=== PATIENT | male | born 1985 | race Caucasian/White ===

== ENCOUNTER 2018-06-04 17:42 | Emergency (ER) | payer OTHER ==
[~2018-06-04] VITALS: Ht 180.3 cm; Wt 72.6 kg
[~2018-06-04 17:42] MED LIST: ALBU4 PO; Naprosyn500 MG PO; PRED20 PO; Vibramycin100 MG PO; Zofran Odt4 MG SL
[2018-06-04] MEDS ORDERED: ACET500 (18:34)
[2018-06-04] MEDS ORDERED: CYCL10 PO (18:34)
[2018-06-04] MEDS ORDERED: Xanax0.5 MG PO (20:06)
[2018-06-04] MEDS ORDERED: Ultram50 MG PO (20:06)
== END 2018-06-04 20:14 | disposition home or self-care (01) ==
LOC: ER 17:42
DX: F41.0 Panic disorder [episodic paroxysmal anxiety] (principal); K40.90 Unilateral inguinal hernia, without obstruction or gangrene, not specified as recurrent; J45.909 Unspecified asthma, uncomplicated; F17.210 Nicotine dependence, cigarettes, uncomplicated; Z91.018 Allergy to other foods; Z79.899 Other long term (current) drug therapy; W01.0XXA Fall on same level from slipping, tripping and stumbling without subsequent striking against object, initial encounter
CPT/HCPCS: 99283

== ENCOUNTER 2018-07-25 12:06 | Emergency (ER) | payer OTHER ==
[~2018-07-25] VITALS: Ht 177.8 cm; Wt 77.1 kg
[~2018-07-25 12:06] MED LIST changes: +ACET500; +CYCL10 PO; +Ultram50 MG PO; +Xanax0.5 MG PO
[2018-07-25] MEDS ORDERED: IBUP400 PO (12:28)
== END 2018-07-25 12:40 | disposition home or self-care (01) ==
LOC: ER 12:06
DX: M25.531 Pain in right wrist (principal); J45.909 Unspecified asthma, uncomplicated; F17.210 Nicotine dependence, cigarettes, uncomplicated; Z91.018 Allergy to other foods; Z79.899 Other long term (current) drug therapy; W26.9XXA Contact with unspecified sharp object(s), initial encounter
CPT/HCPCS: 73110; 99283-25

== ENCOUNTER 2018-12-04 17:06 | Emergency (ER) | payer MEDICAID ==
[~2018-12-04] VITALS: Ht 177.8 cm; Wt 74.8 kg
[~2018-12-04 17:06] MED LIST changes: +IBUP400 PO
== END 2018-12-04 18:15 | disposition home or self-care (01) ==
LOC: ER 17:06
DX: K40.90 Unilateral inguinal hernia, without obstruction or gangrene, not specified as recurrent (principal); K41.90 Unilateral femoral hernia, without obstruction or gangrene, not specified as recurrent; J45.909 Unspecified asthma, uncomplicated; Z91.018 Allergy to other foods
CPT/HCPCS: 99283

== ENCOUNTER 2023-03-21 01:41 | Emergency (ER) | payer OTHER ==
[~2023-03-21] VITALS: Ht 177.8 cm; Wt 79.4 kg
[~2023-03-21 01:41] MED LIST changes: +Prednisone20 MG PO
[2023-03-21 01:57] VITALS: BP 135/76
[2023-03-21] MEDS ORDERED: IBUP600 PO (02:01)
[2023-03-21] MEDS ORDERED: DELTASONE20 MG PO (02:20)
== END 2023-03-21 02:35 | disposition home or self-care (01) ==
LOC: ER 01:41
DX: L25.5 Unspecified contact dermatitis due to plants, except food (principal); J45.909 Unspecified asthma, uncomplicated; F17.210 Nicotine dependence, cigarettes, uncomplicated; Z59.00 Homelessness unspecified; Z79.52 Long term (current) use of systemic steroids; Z88.8 Allergy status to other drugs, medicaments and biological substances; Z91.018 Allergy to other foods
CPT/HCPCS: J7512

== ENCOUNTER 2023-03-25 11:13 | Emergency (ER) | payer OTHER ==
[~2023-03-25] VITALS: Ht 175.3 cm; Wt 81.7 kg
[~2023-03-25 11:13] MED LIST changes: +DELTASONE20 MG PO; +IBUP600 PO
[2023-03-25 11:19] VITALS: BP 136/92
[2023-03-25] MEDS ORDERED: DIPH50 PO (11:23)
[2023-03-25] MEDS ORDERED: PRED10 PO (13:47)
== END 2023-03-25 14:00 | disposition home or self-care (01) ==
LOC: ER 11:13
DX: R21 Rash and other nonspecific skin eruption (principal); J45.909 Unspecified asthma, uncomplicated; F17.210 Nicotine dependence, cigarettes, uncomplicated; Z88.8 Allergy status to other drugs, medicaments and biological substances; Z91.018 Allergy to other foods; Z79.899 Other long term (current) drug therapy
CPT/HCPCS: 99283

== ENCOUNTER 2024-08-03 05:04 | Emergency (ER) | payer OTHER ==
[~2024-08-03] VITALS: Ht 177.8 cm; Wt 74.8 kg
[~2024-08-03 05:04] MED LIST changes: +DIPH50 PO; +PRED10 PO
[2024-08-03] MEDS ORDERED: MethylPREDNISolone Sod Succ 125 MG Vial IM ONE (07:55)
[2024-08-03] MEDS ORDERED: PRED20 PO (08:00)
[2024-08-03 08:10] VITALS: BP 142/62
== END 2024-08-03 08:18 | disposition home or self-care (01) ==
LOC: ER 05:04
DX: L23.9 Allergic contact dermatitis, unspecified cause (principal); J45.909 Unspecified asthma, uncomplicated; Z79.899 Other long term (current) drug therapy; Z88.8 Allergy status to other drugs, medicaments and biological substances
CPT/HCPCS: 96372; 99282-25; J2919

== ENCOUNTER 2025-03-22 12:23 | Emergency (ER) | payer OTHER ==
[~2025-03-22] VITALS: Ht 177.8 cm; Wt 81.7 kg
[~2025-03-22 12:23] MED LIST changes: +ONDA4ODT MM
[2025-03-22] MEDS ORDERED: Ondansetron HCl 2 MG / ML 2ML Vial IV PRN (12:35)
[2025-03-22 13:07] LABS: BASOPHILS ABSOLUTE AUTO 0.05 K/mm3 (0.00-0.23); BASOPHILS PERCENT AUTO 1 % (0-2); EOSINOPHILS ABSOLUTE AUTO 0.11 K/mm3 (0.00-0.68); EOSINOPHILS PERCENT AUTO 1 % (0-6); Hematocrit 43.3 % (37.0-53.0); Hemoglobin 14.3 g/dL (13.5-17.5); IMMATURE GRAN ABSOLUTE AUTO 0.02 K/mm3 (0.00-0.10); IMMATURE GRAN PERCENT AUTO 0 % (0-1); LYMPHOCYTES ABSOLUTE AUTO 1.98 K/mm3 (0.84-5.20); LYMPHOCYTES PERCENT AUTO 25 % (21-46); MONOCYTES ABSOLUTE AUTO 0.48 K/mm3 (0.16-1.47); MONOCYTES PERCENT AUTO 6 % (4-13); Mean Corpuscular HGB Conc 33.0 g/dL (31.5-36.5); Mean Corpuscular Volume 89 fL (80-100); NEUTROPHILS ABSOLUTE AUTO 5.16 K/mm3 (1.96-9.15); NEUTROPHILS PERCENT AUTO 66 % (41-73); NRBC ABSOLUTE 0.00 K/mm3 (0.00-0.02); NRBC Auto 0.0 /100 WBC (0.0-0.2); Platelet Count 274 K/mm3 (150-400); RDW Coefficient Variation 13.1 % (11.7-14.2); RDW Standard Deviation 42.4 fL (35.1-46.3)
[2025-03-22 13:35] LABS: Alanine Aminotransfer (ALT/SGP 36.0 U/L (12-78); Albumin, Blood 3.8 g/dL (3.4-5.0); Albumin/Globulin Ratio 1.2 (0.8-1.8); Anion Gap 6.0 mmol/L (3-11); Aspartate Aminotrans (AST/SGOT 21.0 U/L (12-37); Bilirubin, Total 0.3 mg/dL (0.1-1.0); Blood Urea Nitrogen 10.0 mg/dL (8-24); CO2, Blood 30.0 mmol/L (21-32); Calcium, Blood 8.4 mg/dL (8.5-10.1); Chloride, Blood 106.0 mmol/L (98-108); Creatinine, Blood 0.88 mg/dL (0.60-1.20); Globulin, Blood 3.2 g/dL (2.2-4.0); Glucose, Blood 114.0 mg/dL (70-99); Potassium, Blood 3.8 mmol/L (3.5-5.5); Sodium, Blood 138.0 mmol/L (136-145); Total Protein, Blood 7.0 g/dL (6.4-8.2)
[2025-03-22] MEDS ORDERED: ONDA4ODT MM (16:24)
[2025-03-22 16:43] VITALS: BP 143/91
[2025-03-22] MEDS ORDERED: LOPE2C PO (17:11)
== END 2025-03-22 17:34 | disposition home or self-care (01) ==
LOC: ER 12:23
PROVIDERS: Emergency Medicine
DX: F11.93 Opioid use, unspecified with withdrawal (principal); J45.909 Unspecified asthma, uncomplicated; F17.210 Nicotine dependence, cigarettes, uncomplicated; Z88.8 Allergy status to other drugs, medicaments and biological substances; Z91.018 Allergy to other foods; Z79.899 Other long term (current) drug therapy
CPT/HCPCS: 80053; 85025; 93005; 93010; 96374; 99284-25; A9270; J2405